=== PATIENT | male | born 1955 | race Two or more races ===

== ENCOUNTER 2017-09-13 22:12 | Emergency (ER) | payer OTHER ==
[~2017-09-13] VITALS: Ht 172.7 cm; Wt 63.9 kg
[2017-09-13 22:15] VITALS: BP 156/90
[2017-09-13] MEDS ORDERED: LIDOCAINE 1%, 20ML ONE (22:35)
[2017-09-13] MEDS ORDERED: DIPH,PERTUSS(ACELL),TET VAC/PF 0.5 ML IM-VACC ONE ×2 (22:52→23:00)
[2017-09-13] MEDS ORDERED: LIDOCAINE 1%, 20ML SQ ONE (23:00)
[2017-09-13] MEDS ORDERED: BACITRACIN ZINC OINT 500U/GM, 0.9 GM ONE (23:52)
== END 2017-09-14 00:06 | disposition home or self-care (01) ==
LOC: ED 23:50
DX: S81.011A Laceration without foreign body, right knee, initial encounter (principal); X58.XXXA Exposure to other specified factors, initial encounter; Y93.89 Activity, other specified; Y92.89 Other specified places as the place of occurrence of the external cause; Y99.9 Unspecified external cause status
CPT/HCPCS: 12002; 90471; 90715; 99284

== ENCOUNTER 2017-09-24 15:40 | Emergency (ER) | payer OTHER ==
[~2017-09-24] VITALS: Ht 172.7 cm; Wt 62.0 kg
[2017-09-24 15:41] VITALS: BP 157/71
== END 2017-09-24 15:58 | disposition home or self-care (01) ==
LOC: ED 15:45
DX: S81.011D Laceration without foreign body, right knee, subsequent encounter (principal); Z48.02 Encounter for removal of sutures
CPT/HCPCS: 99281